=== PATIENT | female | born 1955 | race Caucasian/White ===

== ENCOUNTER 2020-06-21 17:55 | Emergency (ER) | payer SELFPAY ==
[2020-06-21 17:59] VITALS: BP 107/56; PULSE 83; RESP 15; TEMP 37; O2SAT 98; BMI 17.8
--- NOTE | 2020-06-21 18:12 | CT_ITS ---
STUDY: CT BRAIN WITHOUT CONTRAST REASON FOR EXAM: Female, 65 years old. Change in mental status. Patient found by retrocrural tracts. Flight of ideas in grandiosity. RADIATION DOSAGE (If Supplied By Facility): CTDIvol = ( 44.99 ) mGy, DLP = ( 796.11 ) mGycm TECHNIQUE: Transaxial CT imaging of the brain was performed without administration of intravenous contrast material. Individualized dose optimization techniques were used for this CT. COMPARISON: No relevant priors. FINDINGS: Normal soft tissue structures. Normal calvarium. Normal size ventricles and extra-axial spaces for the patient''s age. Normal white matter tracts of the cerebral hemispheres. Normal basal ganglia and thalami. Normal brainstem. Normal cerebellum. There is no intracranial hemorrhage. There are no findings of an acute ischemic infarction. Normal visualized paranasal sinuses. CT/Brain/Head without Contrast IMPRESSION: No acute intracranial or calvarial abnormality. Electronically Signed: Rafa Carmen DO at 19:48 EDT Tel [phone], Service support ,
--- NOTE | 2020-06-21 18:13 | ED.DCSUM_ITS ---
- ER Visit Summary Date of Service: 06/21/20 Chief Complaint: Abnormal behavior History of Present Illness: The patient is a 65 F who presents with abnormal behavior. She comes in with [place] [employer] after being found by the [employer]. Her behavior is abnormal so they brought her here. She has flight of ideas and grandiosity. 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 She talks about how she has on fertilized eggs that she needs to attend to at home. She speaks of multiple famous people and says that she is related to them and has inherited all their money. She says that she takes medications but is not sure the name of these. She has no medical records here for any history. Physical Examination: Vital signs reviewed. HEENT exam unremarkable. Heart is regular rate and rhythm without murmurs. Lungs are clear to auscultation. Abd omen is soft and nontender. Extremities reveal no edema. Skin exam normal. Neurologic exam shows no strength or sensation deficits. She does have grandiosity and flight of ideas. She denies being suicidal or homicidal. Test Results: CBC normal. Chloride 113, creatinine 0.52. Toxic and alcohol negative. CAT scan of the head is unremarkable Emergency Department Course and Treatment: Patient continued with her psychosis and delusions in the emergency department. However, she was cooperative. At this point I feel she needs a psychiatric evaluation due to her psychosis and delusions of grandeur. Patient will be evaluated by psychiatry and disposition ending Treatment Plan: [] Disposition: Pending psychiatric evaluation Impression: Acute psychosis, delusions This note was generated with [employer] dictation software. It may contain incorrect words, spelling, and punctuation that were not noted in review of the chart prior to signing ED Disposition - Plan for ED Patient: Referrals: NOT,DEFINED [NON-STAFF] -
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
[2020-06-21 19:21] VITALS: BP 105/55; PULSE 59; RESP 14; O2SAT 99
[2020-06-21 19:43] LABS: Absolute Lymphocyte Count 3.12 X10^3/uL (0.83-4.51); Absolute Neutrophil Count 3.9 X10^3/uL (2.0-7.7); Basophil# 0.04 X10^3/uL; Basophil% 0.5 % (0-1); Eosinophil# 0.14 X10^3/uL; Eosinophils% 1.8 % (0-5); Hematocrit 37.6 % (37-47); Hemoglobin 12.4 g/dL (12.0-15.0); Lymphocyte # 3.12 X10^3/ul (4.0); Lymphocyte % 40.1 % (19-41); Mean Corpuscular Hgb 30.5 pg (27.0-32.0); Mean Corpuscular Volume 92.6 fL (81-99); Mean Platelet Vol. 9.2 fl (6.2-12.0); Monocyte# 0.56 X10^3/uL; Monocyte% 7.2 % (0-10); NRBC Flagged by Analyzer 0 % (0-5); Platelet Count 323 K/mm3 (150-450); RBC Distribution Width CV 13.5 % (11.6-14.6); RBC Distribution Width SD 45.5 fl (35.1-43.9); Red Blood Count 4.06 M/mm3 (4.2-5.4); White Blood Count 7.8 K/mm3 (4.4-11.0)
[2020-06-21 20:03] LABS: Alcohol, Blood (Medical)-Serum < 3.0 mg/dL
[2020-06-21 20:13] LABS: AST(SGOT) 11 U/L (15-37); Alanine Aminotransfer ALT/SGPT 13 U/L (13-56); Albumin, Serum 3.3 g/dL (3.2-5.0); Alkaline Phosphatase 89 U/L (45-117); Anion Gap 3 (5-15); BUN 13 mg/dL (7-18); BUN/Creat Ratio 25.2 RATIO (10-20); Calcium,Total 9.1 mg/dL (8.5-10.1); Chloride 113 mmol/L (98-107); Creatinine, Serum 0.52 mg/dL (0.55-1.02); EST Glomerular Filtration Rate 128 mL/min (>60); Est Glom Filt Rate - Afr Amer 155 mL/min (>60); Estimated Creatinine Clearance 77.27 ml/min; Globulin 3.2 g/dL (2.2-4.2); Glucose 84 mg/dL (74-106); Potassium 3.5 mmol/L (3.5-5.1); Protein, Total 6.5 g/dL (6.4-8.2); Sodium Level 144 mmol/L (136-145); Thyroid Stim Hormone (TSH) 1.17 uIU/mL (0.358-3.74)
[2020-06-21 20:27] LABS: Internal QC Validated? YES +Cl - CLEAR BKGD; Pregnancy, Serum, hCG Quali. NEGATIVE Negative
--- NOTE | 2020-06-21 21:38 | ED.RN ---
CALLED CRISIS TO SEE THIS PT, JAVIER IS SUSTAINABLE AGRICULTURE FACULTY
[2020-06-21 21:40] LABS: Red Blood Cells-Urine 0 SEEN /hpf (0-5); White Blood Cells 0 SEEN /hpf (0-5)
[2020-06-21 21:42] VITALS: RESP 16
[2020-06-21 21:58] LABS: Color, Urine Yellow (Yellow); Glucose, Dipstick Normal (Normal); Ketone-Dipstick 5 mg/dl (Negative); Leukocyte Esterase-Dipstick 25 /ul (Negative); Nitrite-Dipstick Negative (Negative); Occult Blood-Urine Negative /ul (Negative); Protein-Dipstick 30 mg/dl (Negative); Specific Gravity, Urine 1.015 (1.002-1.030); Urine Bilirubin Dipstick Negative (Negative); Urine Clarity Clear (Clear); Urine Urobilinogen 1 mg/dl (Normal); Urine pH 6.5 (5.0 - 8.0)
[2020-06-21 22:00] VITALS: RESP 17
[2020-06-21 22:04] LABS: Bacteria RARE /hpf (None Seen); Mucous, Urine 1+ /hpf (<or=2+); Squamous Epithelial Cells - UA 0-5 SEEN /hpf (5-10)
[2020-06-21 22:16] LABS: Amphetamine Urine VISTA NEGATIVE (<1000 ng/mL); Barbiturate Urine VISTA NEGATIVE (< 200 ng/mL); Benzodiazepine Urine VISTA NEGATIVE (< 200 ng/mL); Cocaine Urine VISTA NEGATIVE (< 300 ng/mL); Ecstacy Urine VISTA NEGATIVE (< 500 ng/mL); Methadone Urine VISTA NEGATIVE (< 300 ng/mL); PCP Urine VISTA NEGATIVE (< 25 ng/mL); THC Urine VISTA NEGATIVE (< 50 ng/mL); Vista UDS pH Range 6
[2020-06-21 23:00] VITALS: BP 101/58; PULSE 72; RESP 14; O2SAT 97
[2020-06-22] VITALS (23 sets, daily range): BP systolic 102–130; BP diastolic 57–72; PULSE 18–80; RESP 14–18; O2SAT 97–98
--- NOTE | 2020-06-22 10:32 | EKG12_ITS ---
Test Reason : MENTAL HEALTH Blood Pressure : / mmHG Vent. Rate : 064 BPM Atrial Rate : 064 BPM P-R Int : 132 ms QRS Dur : 090 ms QT Int : 390 ms P-R-T Axes : 080 089 062 degrees QTc Int : 402 ms Normal sinus rhythm Normal ECG Confirmed by RAFFI OSORIO, JOLYNN ([id number]), map editor JANET CAPUTO ([id number]) on 06/27/2020 1:45:09 PM Referred By: JUSTINA Confirmed By:JOLYNN NUGENT MD
--- NOTE | 2020-06-22 10:35 | NURSING ---
NO OLD EKGS
--- NOTE | 2020-06-22 11:32 | ED.RN ---
LUNCH TRAY DELIVERED. PT RESTING COMFORTABLY. DENIES FURTHER NEEDS AT THIS TIME.
[2020-06-22 12:01] LABS: Valproic Acid (Depakene) Level < 3 ug/mL (50-100)
--- NOTE | 2020-06-22 12:05 | NURSING ---
FAXED EKG AND DEPAKOTE LEVEL TO [facility]
--- NOTE | 2020-06-22 13:57 | NURSING ---
FAXED COVID RESULTS TO [facility]
--- NOTE | 2020-06-22 16:27 | NURSING ---
JAVIER, CRISIS, CALLED. PATIENT MAY GET A BED TOMORROW
[2020-06-23] VITALS (16 sets, daily range): BP systolic 105–125; BP diastolic 59–77; PULSE 59–71; RESP 14–16; TEMP 36.4; O2SAT 94–98
--- NOTE | 2020-06-23 09:44 | ED.RN ---
WINSTON ANDRADE WITH CRISIS; SHE SPOKE WITH [facility] THIS AM AND PT IS 6-7TH IN LINE.
[2020-06-24] VITALS (19 sets, daily range): BP systolic 104–125; BP diastolic 44–76; PULSE 57–65; RESP 14–18; TEMP 37.1; O2SAT 96–99
--- NOTE | 2020-06-24 11:54 | CM.ED ---
SOCIAL WORK Per Fabiola with Crisis, [facility] stating will not have bed for patient this weekend. Fabiola to contact [facility] regarding referral. This worker met with patient to discuss self-pay status and possibility of applying for Medicaid. Patient reports to have inherited multiple properties in [facility] and is over income for Medicaid. 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 Spoke with Crisis about re-assessment. Fabiola to follow up. Dae Swanson, LOCKSTITCH FRONT MAKER, RRTS
--- NOTE | 2020-06-24 12:52 | CM.ED ---
SOCIAL WORK Discussed possible insurance through with registration. Patient does have for Life. Information called to Crisis and eligibility form faxed to violeta. Dae Swanson MSW, BEAUTY CULTURE TEACHER
--- NOTE | 2020-06-24 15:44 | NURSING ---
CALLED PHYSICANS, ETA IS 3 HRS
[2020-06-24] MEDS: Ziprasidone IM 20 MG/ML VIAL 10 MG IM (19:37)
== END 2020-06-24 19:38 ==
PROVIDERS: Emergency Medicine; Emergency Provider Emergency Medicine
DX: F23 Brief psychotic disorder (principal)
CPT/HCPCS: 70450; 80053; 80164; 80307; 80320; 81001; 84443; 84703; 85025; 87635; 93005; 99285; G0480; J3486; U0003

== ENCOUNTER 2020-07-02 22:43 | Emergency (ER) | payer SELFPAY ==
[2020-07-02 22:44] VITALS: BP 142/42; PULSE 91; RESP 18; TEMP 36.7; O2SAT 98; BMI 17.9
--- NOTE | 2020-07-02 22:56 | ED.RN ---
patient daughter tracie erwin [phone]
--- NOTE | 2020-07-02 23:03 | EKG12_ITS ---
Test Reason : MHC Blood Pressure : / mmHG Vent. Rate : 078 BPM Atrial Rate : 078 BPM P-R Int : 136 ms QRS Dur : 084 ms QT Int : 428 ms P-R-T Axes : 087 097 058 degrees QTc Int : 487 ms Normal sinus rhythm Possible Left atrial enlargement Rightward axis Borderline ECG Confirmed by CATHERINE OSORIO, ERI ([id number]), copy editor MIRANDA BEST ([id number]) on 07/07/2020 8:25:34 AM Referred By: EMERY Confirmed By:OMAR ALEXANDER MD
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
[2020-07-02 23:31] LABS: Absolute Lymphocyte Count 3.11 X10^3/uL (0.83-4.51); Absolute Neutrophil Count 5.2 X10^3/uL (2.0-7.7); Basophil# 0.05 X10^3/uL; Basophil% 0.5 % (0-1); Eosinophil# 0.11 X10^3/uL; Eosinophils% 1.2 % (0-5); Hematocrit 42.9 % (37-47); Lymphocyte # 3.11 X10^3/ul (4.0); Lymphocyte % 34.1 % (19-41); Mean Corp Hgb Conc 32.6 g/dL (32-36); Mean Corpuscular Hgb 30.4 pg (27.0-32.0); Mean Corpuscular Volume 93.3 fL (81-99); Mean Platelet Vol. 9.3 fl (6.2-12.0); Monocyte# 0.59 X10^3/uL; Monocyte% 6.5 % (0-10); NRBC Flagged by Analyzer 0 % (0-5); Neutrophil # 5.22 X10^3/uL (2.7-7.7); Neutrophil % 57.2 % (47-70); Platelet Count 260 K/mm3 (150-450); RBC Distribution Width CV 13.5 % (11.6-14.6); RBC Distribution Width SD 46.2 fl (35.1-43.9); White Blood Count 9.1 K/mm3 (4.4-11.0)
[2020-07-02 23:34] LABS: Amphetamine Urine VISTA NEGATIVE (<1000 ng/mL); Barbiturate Urine VISTA NEGATIVE (< 200 ng/mL); Benzodiazepine Urine VISTA NEGATIVE (< 200 ng/mL); Cocaine Urine VISTA NEGATIVE (< 300 ng/mL); Ecstacy Urine VISTA NEGATIVE (< 500 ng/mL); Methadone Urine VISTA NEGATIVE (< 300 ng/mL); PCP Urine VISTA NEGATIVE (< 25 ng/mL); THC Urine VISTA NEGATIVE (< 50 ng/mL); Vista UDS pH Range 7
[2020-07-02] MEDS: Ziprasidone IM 20 MG/ML VIAL IM (23:42)
[2020-07-02 23:46] LABS: Anion Gap 5 (5-15); BUN 15 mg/dL (7-18); Calcium,Total 9.7 mg/dL (8.5-10.1); Chloride 107 mmol/L (98-107); Creatinine, Serum 0.63 mg/dL (0.55-1.02); EST Glomerular Filtration Rate 102 mL/min (>60); Est Glom Filt Rate - Afr Amer 124 mL/min (>60); Estimated Creatinine Clearance 64.14 ml/min; Glucose 90 mg/dL (74-106); Potassium 3.7 mmol/L (3.5-5.1); Sodium Level 140 mmol/L (136-145)
[2020-07-02 23:56] LABS: Alcohol, Blood (Medical)-Serum < 3.0 mg/dL
[2020-07-03] VITALS (14 sets, daily range): BP systolic 110–123; BP diastolic 55–72; PULSE 61–78; RESP 14–18; TEMP 36.1; O2SAT 16–98
--- NOTE | 2020-07-03 08:41 | NURSING ---
FAX WENT THROUGH TO CRISIS. JAVIER WILL BE PASSING REPORT TO RAYMOND. RAYMOND WILL BE CALLING US TO TALK TO PATIENT
--- NOTE | 2020-07-03 17:09 | ED.RN ---
PER ALVARADO AT THE COUNSELING CENTER, PT DECLINED AT [facility] BECAUSE SHE IS AT HER BASELINE. NITESH MOISE DECLINED BECAUSE SHE WAS RECENTLY HOSPITALIZED. [facility]
[2020-07-04] VITALS (16 sets, daily range): BP systolic 94–130; BP diastolic 42–79; PULSE 63–78; RESP 14–18; O2SAT 16–98
--- NOTE | 2020-07-04 10:17 | CM.ED ---
SOCIAL WORK Spoke with Padmini at Crisis for update on patient. Per Padmini, referral is pending at [facility]. Dae Swanson, AMPOULE FILLER AND SEALER, HERBICIDE SERVICE SALES REPRESENTATIVE
--- NOTE | 2020-07-04 15:36 | CM.ED ---
SOCIAL WORK Spoke with Crisis regarding referral. Per Marlene, [facility] and [facility] . Marlene reports referral has been sent to [place]. Dae Swanson, GEOPHYSICAL PROSPECTING PERMIT AGENT, SUPERVISOR BROADLOOM
--- NOTE | 2020-07-04 16:09 | EKG12_ITS ---
Test Reason : PLACEMENT Blood Pressure : / mmHG Vent. Rate : 078 BPM Atrial Rate : 078 BPM P-R Int : 140 ms QRS Dur : 084 ms QT Int : 398 ms P-R-T Axes : 084 085 063 degrees QTc Int : 453 ms Normal sinus rhythm Normal ECG Confirmed by CATHERINE OSORIO, ERI ([id number]), book editor JANET CAPUTO ([id number]) on 07/12/2020 9:01:50 AM Referred By: EMERY Confirmed By:OMAR ALEXANDER MD
--- NOTE | 2020-07-04 18:16 | ED.RN ---
[facility] REQUESTED ADDITIONAL INFORMATION FOR ADMISSION. LIVER PANEL AND DEPAKOTE LEVEL WERE DRAWN AND SENT TO LAB AND EKG OBTAINED. ALL WILL BE FAXED TO [facility] ONCE RESULTED.
[2020-07-04 18:26] LABS: AST(SGOT) 15 U/L (15-37); Alanine Aminotransfer ALT/SGPT 22 U/L (13-56); Albumin, Serum 3.5 g/dL (3.2-5.0); Alkaline Phosphatase 110 U/L (45-117); Bilirubin, Direct 0.11 mg/dL (0.00-0.30); Globulin 3.7 g/dL (2.2-4.2); Protein, Total 7.2 g/dL (6.4-8.2)
[2020-07-04 18:59] LABS: Valproic Acid (Depakene) Level < 3 ug/mL (50-100)
[2020-07-05] VITALS (18 sets, daily range): BP systolic 101–153; BP diastolic 50–88; PULSE 64–91; RESP 15–18; TEMP 36.2–36.4; O2SAT 98–100
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
--- NOTE | 2020-07-05 11:17 | ED.RN ---
PER CRISIS PT IS PENDING ACCEPTANCE AT [facility]
--- NOTE | 2020-07-05 13:35 | CM.ED ---
SOCIAL WORK Call from [facility] with Crisis. Per Alesia, called [place] for update, patient's referral still under review. Dae Swanson, RADIO OFFICER, PAID INTERNSHIP
--- NOTE | 2020-07-05 18:01 | ED.RN ---
PER ENERGY AND CONSERVATION TECHNICIAN BELIA MARTINEZ IS STILL PENDING APPROVAL AT [facility]
== END 2020-07-05 20:40 ==
PROVIDERS: Emergency Medicine; Emergency Provider Emergency Medicine
DX: F20.9 Schizophrenia, unspecified (principal); F17.200 Nicotine dependence, unspecified, uncomplicated; Z88.5 Allergy status to narcotic agent; Z88.8 Allergy status to other drugs, medicaments and biological substances
CPT/HCPCS: 36415; 80048; 80076; 80164; 80307; 80320; 85025; 93005; 99283; G0480; J3486